=== PATIENT | male | born 1950 | race Caucasian/White ===

== ENCOUNTER 2020-05-20 08:42 | Inpatient (IN) ==
[2020-05-20] MEDS: *HR* OxyCODONE/APAP 7.5/325 TABLET PO PRN (18:56)
[2020-05-20] MEDS: Sennosides/Docusate Sodium TABLET PO SCH (21:57)
[2020-05-20] MEDS: methocarbamoL 500 MG TABLET PO SCH (23:32)
[2020-05-21] MEDS: *HR* Enoxaparin 40 MG/0.4 ML SYRINGE SQ SCH (05:07)
[2020-05-21] MEDS: *HR* OxyCODONE/APAP 7.5/325 TABLET PO PRN ×4 (05:08→23:45)
[2020-05-21 06:18] LABS: Basophils % 0.4 %; Eosinophils # 0.2 K/mcL (0.0-0.6); Eosinophils % 2.5 %; Hematocrit 28.9 % (37.5-50.1); Hemoglobin 9.3 g/dL (12.9-16.9); Immature Granulocytes % 0.7 % (0-4); Lymphocytes % 14.5 %; Mean Corpuscular HGB Conc 32.2 g/dL (31.6-35.5); Mean Corpuscular Hemoglobin 32.6 pg (28.0-33.3); Mean Corpuscular Volume 101.4 fL (83.0-100.0); Monocytes # 1.1 K/mcL (0.0-1.3); Monocytes % 16.1 %; Neutrophils # 4.4 K/mcL (1.6-8.9); Platelet Count 214 K/mcL (140-400); Red Blood Count 2.85 M/mcL (4.19-5.50); Red Cell Distribution Width 14.6 % (11.5-14.5); Segmented Neutrophils % 65.8 %; White Blood Count 6.7 K/mcL (4.3-11.1)
[2020-05-21 06:58] LABS: BUN/Creatinine Ratio 17 (6-26); Blood Urea Nitrogen 13 mg/dL (8-23); Calcium 8.5 mg/dL (8.6-10.3); Carbon Dioxide 32 mEq/L (23-29); Chloride 102 mEq/L (98-107); Glucose 111 mg/dL (70-105); Osmolality,Calculated 289 (280-300); Potassium 3.7 mEq/L (3.5-5.1); Sodium 139 mEq/L (136-145); eGFR For African Americans > 60 (> 60); eGFR For Non-African Americans > 60 (> 60)
[2020-05-21] MEDS: Sennosides/Docusate Sodium TABLET PO SCH ×2 (09:11→21:18)
[2020-05-21] MEDS: Multivit/Ca/Min/Fe/FA 1 TAB TABLET PO SCH (09:11)
[2020-05-21] MEDS: Bumetanide 1 MG TABLET PO SCH (09:11)
[2020-05-21] MEDS: methocarbamoL 500 MG TABLET PO SCH ×3 (09:12→23:47)
[2020-05-21] MEDS: Magnesium Oxide 400 MG TABLET PO SCH (09:12)
[2020-05-21] MEDS: Aspirin Enteric Coated 81 MG Tablet PO SCH (09:12)
[2020-05-21] MEDS: Ketoconazole 2% CRM 15 GM TUBE TP SCH (09:20)
[2020-05-21] MEDS ORDERED: Sennosides 8.6 MG TABLET PO ONE (11:56)
[2020-05-22] MEDS: *HR* Enoxaparin 40 MG/0.4 ML SYRINGE SQ SCH (05:28)
[2020-05-22] MEDS: *HR* OxyCODONE/APAP 7.5/325 TABLET PO PRN (05:28)
[2020-05-22 07:18] VITALS: BP 109/73
[2020-05-22] MEDS: Magnesium Oxide 400 MG TABLET PO SCH (08:33)
[2020-05-22] MEDS: Sennosides/Docusate Sodium TABLET PO SCH (08:33)
[2020-05-22] MEDS: methocarbamoL 500 MG TABLET PO SCH (08:33)
[2020-05-22] MEDS: Ketoconazole 2% CRM 15 GM TUBE TP SCH (08:34)
[2020-05-22] MEDS: Multivit/Ca/Min/Fe/FA 1 TAB TABLET PO SCH (08:34)
[2020-05-22] MEDS: Aspirin Enteric Coated 81 MG Tablet PO SCH (08:34)
[2020-05-22] MEDS: Bumetanide 1 MG TABLET PO SCH (08:34)
[2020-05-22] MEDS ORDERED: Sennosides 8.6 MG TABLET PO ONE (11:56)
== END 2020-05-22 12:26 | disposition home or self-care (01) | DRG 949 ==
LOC: INPGRE 17:50
PROVIDERS: ADMIT Family Medicine; ATTEND Family Medicine